=== PATIENT | female | born 1970 | race Caucasian/White ===

== ENCOUNTER → 2017-05-28 | Outpatient (CLI) | payer BC, OTHER ==
[~2017-05-28] VITALS: Ht 162.6 cm; Wt 92.1 kg
[~2017-05-28] MED LIST: ASPIR-TRIN325 MG PO; ASPIRIN325; CLARITIN10 MG PO; GLUCOPHAGE500 MG PO; LEVOTHYROXIN0.025 M1 PG; LEVOTHYROXINE 0.15MG PO; PROZAC20 MG PO
--- NOTE | ~2017-05-28 | CATHLAB ---
[facility] [address] [address] INVASIVE PROCEDURE REPORT Name: ROGER CRUZ Room #: REG CL Babak#: [id number] Admission: 05/28/17 Attend Phys: Dex Viramontes Discharge: Date of : 74 Date of Service: 05/31/17 1622 Report #: [id number] THIS REPORT FOR: //name// APPROVED REPORT Patient Details Patient Status: Out-Patient Room #: The patient is a 46 year-old female Procedures Performed Left heart catheterization, selective left and right coronary angiography, measurement of left ventricular end-diastolic pressure, supervision of conscious sedation. Indication Positive stress test, Chest pain Procedure Narrative The Right Groin^ was infiltrated with 1% Lidocaine subcutaneous anesthesia. A PINNACLE 4FR Sheath #[id number] sheath was inserted into the RFA^. Coronary angiography was performed using coronary diagnostic catheters. The right coronary system was accessed and visualized with a JR4 catheter. The left coronary system was accessed and visualized with a JL4 catheter. The left ventricle was accessed and visualized with a PIGTAIL catheter. Left ventricular/Aortic Valve gradient assessed via catheter pullback. Hemostasis was obtained with manual pressure following sheath removal without any complications. The patient tolerated the procedure well and there were no complications associated with the procedure. There was no hematoma. Intraoperative Conscious Sedation Sedation start time: 10.32 Case end Time: 10:43 Versed 2.0 mg Fluoro Time: 1.00 minutes Dose: 360 mGy Contrast Type and Amount: Omnipaque 40 ml Diagnostic Cath Left Main The left main is of normal or drink caliber bifurcates left anterior descending left circumflex coronary artery. It is free of significant high-grade obstructive lesions LAD Moderate caliber type III vessel courses in the anterior [facility] [address] [place] [address] INVASIVE PROCEDURE REPORT Name: ROGER CRUZ Room #: REG [facility]#: [id number] Admission: 05/28/17 Attend Phys: Dex Viramontes Discharge: Date of : 74 Date of Service: 05/31/17 1622 Report #: [id number] interventricular sulcus giving rise to septal and diagonal branches in its course. Is free of high-grade disease. Circumflex Large caliber dominant vessel giving rise to lateral wall and posterior wall marginal branches as well as the posterior descending artery. No significant obstructive lesions are noted Right Coronary Small caliber nondominant vessel without obstructions Left Ventriculography Left Ventriculography was not performed. Hemodynamics The aortic pressure is 173/102 mmHg with a mean of 124 mmHg. The left ventricular pressure is 164/-5 mmHg with a mean of mmHg. The left ventricular end diastolic pressure is 25 mmHg. Conclusion 1. Essentially normal coronary arteries 2. Abnormal hemodynamics with elevated systolic and left ventricular end-diastolic pressures Recommendations Cardiac Risk Reduction Program Medical Therapy <ELECTRONICALLY SIGNED> By: Dex Roman MD 05/31/17 1622 162 162 Dex Roman MD /INF
[2017-05-28 09:01] VITALS: BP 150/91
[2017-05-28 09:52] LABS: HEMATOCRIT 40.7 % (37.0-47.0); HEMOGLOBIN 13.8 gm/dL (12.0-15.0); MCH 31.1 pg (26.0-34.0); MCHC 33.8 g/dL (28.0-37.0); RBC 4.43 mil/uL (4.20-5.00); RDW 13.8 % (10.5-14.5); WBC 7.6 thou/uL (4.0-11.0)
[2017-05-28 10:00] LABS: CALCIUM 9.2 mg/dL (8.5-10.1); POTASSIUM 4.1 mmol/L (3.5-5.1)
[2017-05-28 10:03] LABS: PROTIME 10.2 Seconds (9.3-11.4)
== END | disposition home or self-care (01) ==
LOC: CATH 08:19
PROVIDERS: Internal Medicine
DX: I50.1 Left ventricular failure, unspecified (principal); I10 Essential (primary) hypertension; Z90.49 Acquired absence of other specified parts of digestive tract; Z98.890 Other specified postprocedural states; Z82.49 Family history of ischemic heart disease and other diseases of the circulatory system; Z79.82 Long term (current) use of aspirin; Z79.899 Other long term (current) drug therapy